=== PATIENT | female | born 1945 ===

== ENCOUNTER 2017-09-24 10:54 | Emergency (ER) | payer MEDICARE, MEDICAID ==
[2017-09-24 10:55] VITALS: BMI 29.7
[2017-09-24 12:57] LABS: BASO % 0.5 % (0.0-2.0); EOS % 0.3 % (0.0-4.0); HEMOGLOBIN 13.1 g/dL (11.0-16.0); LYMPH # 2.2 K/uL (1.0-4.3); LYMPH % 24.5 % (20.0-40.0); MEAN CELL VOLUME 79.9 fL (81.0-99.0); MEAN CORPUSCULAR HEMOGLOBIN 27.7 pg (27.0-31.0); MEAN CORPUSCULAR HGB CONC 34.7 g/dL (33.0-37.0); MONO # 0.6 K/uL (0.0-0.8); MONO % 6.5 % (0.0-10.0); NEUT # 6.2 K/uL (1.8-7.0); NEUT % 68.2 % (50.0-75.0); NRBC % 0.1 % (0.0-2.0); RBC 4.73 Mil/uL (3.80-5.20); RED CELL DISTRIBUTION WIDTH 13.3 % (11.5-14.5); WHITE BLOOD COUNT 9.1 K/uL (4.8-10.8)
--- NOTE | 2017-09-24 13:07 | C.PDOC ---
History Of Present Illness 72 y/o female with PMHx of HTN and DM sent to ED by Dr. Haro for low sodium - 127 which was checked two days ago. Also notes pt has been c/o weakness for the last month. Patient denies fever, pain, vomiting, diarrhea, leg swelling, headache, chest pain or any other complaints at this time. Daughter at bedside who notes pt has been her baseline though notes she has been forgetful- noting pt has h/o dementia. Time Seen by Provider: 09/24/17 12:02 Chief Complaint (Nursing): Abnormal Labs History Per: Patient History/Exam Limitations: no limitations Onset/Duration Of Symptoms: Days Current Symptoms Are (Timing): Still Present Past Medical History Reviewed: Historical Data, Nursing Documentation, Vital Signs Vital Signs: Last Vital Signs Temp 98.1 F 09/24/17 15:48 Pulse 97 H 09/24/17 15:48 Resp 20 09/24/17 15:48 BP 178/93 H 09/24/17 15:48 Pulse Ox 98 09/24/17 15:48 - Medical History PMH: Colonic Polyps, Depression, HTN Surgical History: No Surg Hx Family History: States: No Known Family Hx - Social History Hx Alcohol Use: No Hx Substance Use: No - Immunization History Hx Tetanus Toxoid Vaccination: No Hx Influenza Vaccination: No (Not sure) Hx Pneumococcal Vaccination: No (Not sure) Review Of Systems Constitutional: Negative for: Fever, Chills Gastrointestinal: Negative for: Nausea, Vomiting Neurological: Positive for: Weakness. Negative for: Numbness Physical Exam - Physical Exam Appears: Non-toxic, No Acute Distress, Other (thin) Skin: Warm, Dry, No Rash Head: Atraumatic, Normacephalic Eye(s): bilateral: Normal Inspection, EOMI Nose: Normal Oral Mucosa: Moist Neck: Normal ROM, Supple Chest: Symmetrical Cardiovascular: Rhythm Regular Respiratory: Normal Breath Sounds, No Accessory Muscle Use, No Rales, No Rhonchi , No Wheezing Gastrointestinal/Abdominal: Soft, No Tenderness, No Guarding, No Rebound Extremity: Normal ROM Neurological/Psych: Oriented x3, Normal Speech, Normal Cognition ED Course And Treatment - Laboratory Results Result Diagrams: 09/24/17 12:50 09/24/17 13:37 ECG: Interpreted By Me, Viewed By Me ECG Rhythm: Sinus Tachycardia Rate From EC O2 Sat by Pulse Oximetry: 97 (RA) Pulse Ox Interpretation: Normal Progress Note: Blood work , UA, EKG ordered. Case discussed with Dr Fierro , who admits for Dr Haro , who notes pt does not meet admission criteria and suggests d/c HCTZ. Case discussed with Dr Orr, who requests admission to Dr Reid Fierro for hyponatremia. Case discussed with Dr Fierro, agreed upon admission. Dr Orr spoke to daughter and pt and called back noting pt can be discharged in daughters care. Notes he will follow up with her in office. Also requests to d/c Losartan/HCTZ and change in Norvasc 5mg daily. Pt and daughter were informed , do not want to stay in the hospital , and will follow up outpt. Pt notes she feels well and notes she will feel worse in the hospital. Case discussed with Dr Back, agreed upon plan and discharge. Disposition - Disposition Disposition: HOME/ ROUTINE Disposition Time: 15:40 Condition: STABLE Additional Instructions: Stop taking the Lostartan/HCTZ and start taking Amlodipine. Follow up with Dr Orr and and Dr Hernandez as scheduled. Return to ER if symptoms persist or worsen. Prescriptions: amLODIPine [Norvasc] 5 mg PO DAILY #20 tab Instructions: Hyponatremia (ED) Forms: (AMA) Informed Refusal, [facility] ([place]) - Clinical Impression Clinical Impression: Hyponatremia - PA / SENIOR PAYROLL MANAGER / Resident Statement MD/DO has reviewed & agrees with the documentation as recorded. - Scribe Statement The provider has reviewed the documentation as recorded by the Godwinibe Chacorta Riddle All medical record entries made by the Godwinibleatha were at my direction and personally dictated by me. I have reviewed the chart and agree that the record accurately reflects my personal performance of the history, physical exam, medical decision making, and the department course for this patient. I have also personally directed, reviewed, and agree with the discharge instructions and disposition.
[2017-09-24 13:16] LABS: URINE BILIRUBIN NEGATIVE (NEGATIVE); URINE BLOOD 2+ (NEGATIVE); URINE CLARITY Clear (Clear); URINE COLOR Colorless (YELLOW); URINE GLUCOSE (UA) NORMAL (Normal); URINE LEUKOCYTE ESTERASE NEG Leu/uL (Negative); URINE NITRATE NEGATIVE (NEGATIVE); URINE PROTEIN NEGATIVE (NEGATIVE); URINE UROBILINOGEN NORMAL mg/dL (0.2-1.0)
[2017-09-24] MEDS ORDERED: Sodium Chloride 0.9% 1,000 ML IV ONE (14:09)
[2017-09-24 14:26] LABS: ALB/GLOB RATIO 1.2 (1.0-2.1); ALBUMIN 4.5 g/dL (3.5-5.0); ALT/SGPT 22 U/L (9-52); AST/SGOT 28 U/L (14-36); BLOOD UREA NITROGEN 12 mg/dL (7-17); CALCIUM 9.3 mg/dl (8.6-10.4); GFR AFRICAN-AMERICAN > 60; GFR NON-AFRICAN AMERICAN > 60
[2017-09-24] MEDS ORDERED: Sodium Chloride 0.9% 1,000 ML ONE (14:52)
[2017-09-24 15:49] VITALS: BP 178/93; PULSE 97; RESP 20; TEMP 98.1
[2017-09-24 18:00] VITALS: O2SAT 97
[2017-09-25] MEDS ORDERED: Pantoprazole 40 mg EC Tab PO SCH (10:00)
[2017-09-25] MEDS ORDERED: Enoxaparin 40 mg Syringe SC SCH (10:00)
--- NOTE | 2017-09-27 12:25 | CARD ---
APPROVED REPORT EKG Measurement Heart [id number] <Conclusion> Sinus tachycardia Otherwise normal ECG
== END 2017-09-24 15:48 | disposition home or self-care (01) ==
LOC: C.ER 10:54 → C.9E 15:03 → UNDOADMOB 15:03
DX: E87.1 Hypo-osmolality and hyponatremia (principal); I10 Essential (primary) hypertension; E11.9 Type 2 diabetes mellitus without complications
CPT/HCPCS: 80053; 81001; 83930; 83935; 85025; 96360; 99283; J7040